=== PATIENT | female | born 1950 | race Hispanic/Latino ===

== ENCOUNTER 2017-10-18 11:17 | Emergency (ER) | payer OTHER, MEDICARE ==
[~2017-10-18 11:17] MED LIST: CELE-84 PO; FENO145T37 PO; LISI1TAB11 PO; PANT40TA25 PO; TERB250T51 PO
[2017-10-18 12:48] LABS: BASOPHILS % (AUTO) 0.8 % (0.0-5.0); EOSINOPHILS % (AUTO) 2.7 % (0.0-8.0); HEMATOCRIT 38.1 % (36-48); LYMPHOCYTES % (AUTO) 23.8 % (21.0-51.0); MEAN CORPUSCULAR HEMOGLOBIN 30.4 pg (27.0-33.0); MEAN CORPUSCULAR VOLUME 89.5 fL (79-99); MONOCYTES % (AUTO) 6.5 % (3.0-13.0); NEUTROPHILS % (AUTO) 66.2 % (40.0-77.0); PLATELET COUNT (AUTO) 189 K/uL (130-400); RED BLOOD CELL COUNT(AUTO) 4.26 MIL/uL (4.00-5.50); WHITE BLOOD COUNT (AUTO) 7.4 K/uL (4.8-10.8)
[2017-10-18 12:54] LABS: CREATININE 0.6 mg/dL (0.5-1.5); POTASSIUM 3.6 mmol/L (3.5-5.1)
[2017-10-18 12:59] LABS: ALBUMIN 3.3 g/dL (3.5-5.0); BILIRUBIN,TOTAL 0.3 mg/dL (0.2-1.0); TOTAL PROTEIN, SERUM 6.9 g/dL (6.0-8.3)
[2017-10-18] MEDS ORDERED: BENZONATATE 100 MG CAPSULE PO ONE (13:12)
[2017-10-18] MEDS ORDERED: OSELTAMIVIR PHOSPHATE 75 MG CAP ONE (13:13)
[2017-10-18 13:27] LABS: B-TYPE NATRIURETIC PEPTIDE 15 pg/mL (0-100)
== END 2017-10-18 14:49 | disposition home or self-care (01) ==
LOC: EDH 11:17
DX: J11.1 Influenza due to unidentified influenza virus with other respiratory manifestations (principal); I10 Essential (primary) hypertension; E78.5 Hyperlipidemia, unspecified; Z98.890 Other specified postprocedural states; Z88.8 Allergy status to other drugs, medicaments and biological substances
CPT/HCPCS: 36415; 71046; 80053; 83880; 84484; 85025; 87804; 87880; 93005

== ENCOUNTER 2017-11-19 21:53 | Emergency (ER) | payer OTHER, MEDICARE ==
[2017-11-19 22:23] LABS: APPEARANCE,URINE Clear (CLEAR); BILIRUBIN,URINE Negative (NEGATIVE); COLOR,URINE Dark Yellow (YELLOW); GLUCOSE, URINE (UA) Negative (NEGATIVE); KETONES,URINE Trace mg/dL (NEGATIVE); LEUKOCYTE ESTERASE ,URINE Moderate (NEGATIVE); NITRATE,URINE Negative (NEGATIVE); OCCULT BLOOD,URINE Negative (NEGATIVE); PH,URINE 5.5 (5.0-8.0); PROTEIN,URINE Negative (NEGATIVE)
[2017-11-19 22:34] LABS: BASOPHILS % (AUTO) 0.8 % (0.0-5.0); HEMATOCRIT 34.8 % (36-48); LYMPHOCYTES % (AUTO) 31.7 % (21.0-51.0); MEAN CORPUSCULAR HEMOGLOBIN 30.4 pg (27.0-33.0); MEAN CORPUSCULAR HGB CONC 33.9 g/dL (32.0-36.0); MEAN CORPUSCULAR VOLUME 89.7 fL (79-99); MONOCYTES % (AUTO) 7.2 % (3.0-13.0); NEUTROPHILS % (AUTO) 56.3 % (40.0-77.0); PLATELET COUNT (AUTO) 195 K/uL (130-400); RED BLOOD CELL COUNT(AUTO) 3.88 MIL/uL (4.00-5.50); RED CELL DISTRIBUTION WIDTH 14.3 % (11.0-15.5); WHITE BLOOD COUNT (AUTO) 7.4 K/uL (4.8-10.8)
[2017-11-19 22:36] LABS: BACTERIA,URINE Few /HPF (None Seen); MUCUS,URINE Moderate LPF (None Seen)
[2017-11-19 22:52] LABS: CREATININE 0.9 mg/dL (0.5-1.5); POTASSIUM 3.7 mmol/L (3.5-5.1)
[2017-11-19 22:57] LABS: ALBUMIN 3.3 g/dL (3.5-5.0); BILIRUBIN,TOTAL 0.2 mg/dL (0.2-1.0); TOTAL PROTEIN, SERUM 6.7 g/dL (6.0-8.3)
[2017-11-20] MEDS ORDERED: ONDANSETRON HCL MDV 20ML 2 MG/ML VIAL ONE (00:42)
[2017-11-20] MEDS ORDERED: SODIUM CHLORIDE 0.9% 1000ML 1,000 ML IV ONE (00:42)
== END 2017-11-20 02:48 | disposition home or self-care (01) ==
LOC: EDH 21:53
DX: K92.2 Gastrointestinal hemorrhage, unspecified (principal); R10.84 Generalized abdominal pain; E78.5 Hyperlipidemia, unspecified; I10 Essential (primary) hypertension; M19.90 Unspecified osteoarthritis, unspecified site; Z88.7 Allergy status to serum and vaccine; Z90.710 Acquired absence of both cervix and uterus; Z90.49 Acquired absence of other specified parts of digestive tract
CPT/HCPCS: 36415; 74176; 80053; 81001; 82150; 83690; 85025; 93005; 99285; J7030

== ENCOUNTER → 2018-07-05 | Outpatient (CLI) | payer MEDICARE, OTHER ==
[~2018-07-05] MED LIST changes: +IOHEXOL 350 MG/ML 100ML INFUS..BTL IV ONE
== END | disposition home or self-care (01) ==
LOC: OIH 08:32
PROVIDERS: ATTEND Internal Medicine Gastroenterology
DX: R10.31 Right lower quadrant pain (principal); Z90.49 Acquired absence of other specified parts of digestive tract
CPT/HCPCS: 74178; Q9967

== ENCOUNTER → 2020-02-06 | Outpatient (CLI) | payer OTHER ==
[~2020-02-06] MED LIST changes: +ALLO100T PO; +ASPI-1443 PO; +FENO145T26 PO; -FENO145T37 PO; -IOHEXOL 350 MG/ML 100ML INFUS..BTL IV ONE; +KRILL OIL PO; -LISI1TAB11 PO; +LISI1TAB51 PO; +LISI30TA4 PO; +LORA10CA PO; +METO-408 PO; -PANT40TA25 PO; +PANT40TA54 PO; +SOLI5 PO
== END | disposition home or self-care (01) ==
LOC: SHCH 12:28
PROVIDERS: ATTEND Internal Medicine Cardiovascular Disease
DX: I51.7 Cardiomegaly (principal); I87.2 Venous insufficiency (chronic) (peripheral); I20.9 Angina pectoris, unspecified
CPT/HCPCS: 93306; 93356; 93970

== ENCOUNTER → 2020-02-10 | Outpatient (CLI) | payer OTHER ==
[~2020-02-10] MED LIST changes: +PANT40TA25 PO; -PANT40TA54 PO; +REGADENOSON 0.4 MG/5 ML PF SYG IVP SCH
== END | disposition home or self-care (01) ==
LOC: SHCH 07:49
PROVIDERS: ATTEND Internal Medicine Cardiovascular Disease
DX: I20.9 Angina pectoris, unspecified (principal)
CPT/HCPCS: 78452; 93017; 96374; A9500 ×2; J2785

== ENCOUNTER 2020-02-22 06:45 | Day surgery (SDC) | payer OTHER ==
[2020-02-20 09:37] LABS: BASOPHILS % (AUTO) 0.5 % (0.0-5.0); EOSINOPHILS % (AUTO) 3.5 % (0.0-8.0); HEMATOCRIT 38.4 % (36-48); LYMPHOCYTES % (AUTO) 32.3 % (21.0-51.0); MEAN CORPUSCULAR HEMOGLOBIN 30.3 pg (27.0-33.0); MEAN CORPUSCULAR HGB CONC 32.8 g/dL (32.0-36.0); MEAN CORPUSCULAR VOLUME 92.3 fL (79-99); MONOCYTES % (AUTO) 7.5 % (3.0-13.0); NEUTROPHILS % (AUTO) 55.9 % (40.0-77.0); PLATELET COUNT (AUTO) 214 K/uL (130-400); RED BLOOD CELL COUNT(AUTO) 4.16 MIL/uL (4.00-5.50); RED CELL DISTRIBUTION WIDTH 13.5 % (11.0-15.5); WHITE BLOOD COUNT (AUTO) 5.8 K/uL (4.8-10.8)
[2020-02-20 09:52] LABS: CREATININE 0.7 mg/dL (0.5-1.5); POTASSIUM 4.5 mmol/L (3.5-5.1)
[2020-02-20 09:55] LABS: INR 0.97 (0.85-1.15); PARTIAL THROMBOPLASTIN TIME 29.6 SEC (26.3-35.5); PROTHROMBIN TIME 10.5 SEC (9.6-11.6)
[2020-02-20 10:14] LABS: APPEARANCE,URINE Clear (CLEAR); BILIRUBIN,URINE Negative (NEGATIVE); COLOR,URINE Yellow (YELLOW); GLUCOSE, URINE (UA) Negative (NEGATIVE); KETONES,URINE Negative (NEGATIVE); LEUKOCYTE ESTERASE ,URINE Negative (NEGATIVE); NITRATE,URINE Negative (NEGATIVE); OCCULT BLOOD,URINE Negative (NEGATIVE); PH,URINE 6.5 (5.0-8.0); PROTEIN,URINE Negative (NEGATIVE); UROBILINOGEN,URINE 0.2 mg/dL (0.2-1.0)
[2020-02-21 11:05] VITALS: BP 191/83
--- NOTE | 2020-02-21 11:30 | NUR ---
REPORT RECEIVED CALL BACK FROM TEMI PETERSON FOR DR ALANIS. WILL PROCEED WITH PROCEDURE AND EVAL PT IN AM IN REFERENCE TO CREAT AND COUGH. Addendum: 02/21/20 at 1139 by CHRISTIAN PIERRE RN RN WRONG PATIENT
[2020-02-22] VITALS (8 sets, daily range): BP systolic 115–159; BP diastolic 60–82
[~2020-02-22] VITALS: Ht 149.9 cm; Wt 77.9 kg
[~2020-02-22 06:45] MED LIST changes: -CELE-84 PO; -FENO145T26 PO; -LISI1TAB51 PO; -PANT40TA25 PO; -REGADENOSON 0.4 MG/5 ML PF SYG IVP SCH; -TERB250T51 PO
--- NOTE | 2020-02-22 07:30 | NUR ---
PT PRE-OP PREP COMPLETED. PENDING [employer] STAFF TO TAKE TO PROCEDURE
[2020-02-22] MEDS ORDERED: SODIUM CHLORIDE 0.9% 1000ML 1,000 ML IV ONE (08:15)
[2020-02-22] MEDS ORDERED: BIVALIRUDIN 250 MG/VIAL IV ONE (09:44)
[2020-02-22] MEDS ORDERED: IOHEXOL 350 MG/ML 100ML INFUS..BTL IV ONE (09:44)
[2020-02-22] MEDS ORDERED: LIDOCAINE HCL 2% 20ML ONE (09:44)
[2020-02-22] MEDS ORDERED: IOHEXOL-350 50ML VIAL IV ONE (09:44)
[2020-02-22] MEDS ORDERED: NITROGLYCERIN 2 MG/VIAL VIAL IV ONE (09:45)
[2020-02-22] MEDS ORDERED: SODIUM CHLORIDE 0.9% 1000ML 1,000 ML IV SCH (10:18)
[2020-02-22] MEDS ORDERED: METOPROLOL TARTRATE 1 MG/ML 5ML VIAL IV PRN (10:30)
[2020-02-22] MEDS ORDERED: HYDRALAZINE HCL 20 MG/ML VIAL IV PRN (10:30)
[2020-02-22] MEDS ORDERED: GLUCAGON 1MG KIT 1 MG ML IM PRN (10:30)
[2020-02-22] MEDS ORDERED: NITROGLYCERIN 0.4 MG SL TAB SL PRN (10:30)
[2020-02-22] MEDS ORDERED: DEXTROSE 50%-WATER 50 ML DISP.SYRIN IV PRN (10:30)
--- NOTE | 2020-02-22 14:23 | NUR ---
PT HAS REMAINED COMPLICATION FREE. MEETS DISCHARGE CRITERIA. PENDING DISCHARGE HOME AT 1500. VS STABLE AND RT GROIN HAS NO HEMATOMA OR BLEEDING. PULSES TO RT FOOT VIA DOPPLER PRE-POST PROCEDURE. DAUGHTER CANDICE AT BEDSIDE . I GAVE HER AND PT PRINTED AND VERBAL DISCHARGE INSTRUCTIONS . VERBALIZE UNDERSTANDING.
--- NOTE | 2020-02-22 15:00 | NUR ---
DISCHARGED HOME WITH DAUGHTER. NO ACUTE DISTRESS. NO HEMATOMA OR BLEEDING TO RT GROIN . TO CAR VIA WHEELCHAIR
== END 2020-02-22 15:00 | disposition home or self-care (01) ==
LOC: DAH 06:45
PROVIDERS: ATTEND Internal Medicine Cardiovascular Disease
DX: I25.119 Atherosclerotic heart disease of native coronary artery with unspecified angina pectoris (principal); I11.0 Hypertensive heart disease with heart failure; I50.30 Unspecified diastolic (congestive) heart failure; M10.9 Gout, unspecified; Z90.49 Acquired absence of other specified parts of digestive tract; Z72.89 Other problems related to lifestyle; Z79.899 Other long term (current) drug therapy; Z83.3 Family history of diabetes mellitus; Z82.49 Family history of ischemic heart disease and other diseases of the circulatory system; Z98.890 Other specified postprocedural states
CPT/HCPCS: 36415; 71045; 80048; 81003; 85025; 85610; 85730; 93005; 93458; A4215; A4216; A4221; A4222; A4223 ×3; A4606; A4663; C1760; C1894 ×2; J1644; J3490 ×2; J7030; Q9965; Q9967 ×2; J0583

== ENCOUNTER → 2020-05-28 | Outpatient (CLI) | payer OTHER | END | disposition home or self-care (01) | LOC: OIH 13:30 | PROVIDERS: ATTEND Internal Medicine | DX: R05 Cough (principal); I70.0 Atherosclerosis of aorta; M47.814 Spondylosis without myelopathy or radiculopathy, thoracic region | CPT/HCPCS: 71046 ==

== ENCOUNTER → 2020-06-20 | Outpatient (CLI) | payer OTHER | END | disposition home or self-care (01) | LOC: OIH 13:02 | PROVIDERS: ATTEND Internal Medicine | DX: M25.562 Pain in left knee (principal) | CPT/HCPCS: 73562 ==

== ENCOUNTER → 2020-07-16 | Outpatient (CLI) | payer OTHER | END | disposition home or self-care (01) | LOC: SHCH 09:19 | PROVIDERS: ATTEND Internal Medicine Cardiovascular Disease | DX: I87.2 Venous insufficiency (chronic) (peripheral) (principal); Z09 Encounter for follow-up examination after completed treatment for conditions other than malignant neoplasm; Z98.890 Other specified postprocedural states | CPT/HCPCS: 93971 ==

== ENCOUNTER → 2020-10-11 | Outpatient (CLI) | payer OTHER | END | disposition home or self-care (01) | LOC: RAH 13:53 | PROVIDERS: ATTEND Orthopaedic Surgery | DX: S83.242A Other tear of medial meniscus, current injury, left knee, initial encounter (principal); M25.462 Effusion, left knee; X58.XXXA Exposure to other specified factors, initial encounter; Y93.89 Activity, other specified; Y92.89 Other specified places as the place of occurrence of the external cause; Y99.8 Other external cause status | CPT/HCPCS: 73721 ==

== ENCOUNTER 2020-11-14 06:00 | Day surgery (SDC) | payer OTHER ==
[2020-11-08 10:45] LABS: BASOPHILS % (AUTO) 0.5 % (0.0-5.0); EOSINOPHILS % (AUTO) 3.9 % (0.0-8.0); HEMATOCRIT 38.6 % (36-48); LYMPHOCYTES % (AUTO) 36.2 % (21.0-51.0); MEAN CORPUSCULAR HEMOGLOBIN 29.6 pg (27.0-33.0); MEAN CORPUSCULAR HGB CONC 32.1 g/dL (32.0-36.0); MEAN CORPUSCULAR VOLUME 92.1 fL (79-99); MONOCYTES % (AUTO) 7.5 % (3.0-13.0); NEUTROPHILS % (AUTO) 51.4 % (40.0-77.0); PLATELET COUNT (AUTO) 199 K/uL (130-400); RED BLOOD CELL COUNT(AUTO) 4.19 MIL/uL (4.00-5.50); RED CELL DISTRIBUTION WIDTH 13.8 % (11.0-15.5); WHITE BLOOD COUNT (AUTO) 6.1 K/uL (4.8-10.8)
[2020-11-08 10:56] LABS: CREATININE 0.7 mg/dL (0.5-1.5); POTASSIUM 3.8 mmol/L (3.5-5.1)
[2020-11-13 12:18] VITALS: BP 199/94
[~2020-11-14] VITALS: Ht 152.4 cm; Wt 80.6 kg
[2020-11-14] VITALS (15 sets, daily range): BP systolic 154–193; BP diastolic 71–99
[~2020-11-14 06:00] MED LIST changes: -ALLO100T PO; -ASPI-1443 PO; -KRILL OIL PO; -LISI30TA4 PO; -LORA10CA PO; +LOSA50TA64 PO; +METO-391 PO; -METO-408 PO
[2020-11-14] MEDS ORDERED: CEFAZOLIN SODIUM 1 GM VIAL ONE (06:10)
[2020-11-14] MEDS ORDERED: LACTATED RINGERS 1000ML 1,000 ML IV ONE (06:10)
[2020-11-14] MEDS ORDERED: ALLO100T PO (06:42)
[2020-11-14] MEDS ORDERED: LIDOCAINE PF 2% 5ML ABBOJECT ONE ×2 (07:43→07:45)
[2020-11-14] MEDS ORDERED: SUCCINYLCHOLINE CHLORIDE 20 MG/ML 10 ML VIAL ONE ×2 (07:43→07:45)
[2020-11-14] MEDS ORDERED: ONDANSETRON HCL 4 MG/2 ML VIAL ONE (07:44)
[2020-11-14] MEDS ORDERED: FENTANYL CITRATE PF 50 MCG/1 ML 2ML VIAL ONE (07:44)
[2020-11-14] MEDS ORDERED: MIDAZOLAM HCL 1 MG/ML 2ML VIAL ONE (07:44)
[2020-11-14] MEDS ORDERED: NEOSTIGMINE 5MG/5ML SYR IV ONE (07:44)
[2020-11-14] MEDS ORDERED: PROPOFOL 10 MG/ML 20ML VIAL IV ONE (07:44)
[2020-11-14] MEDS ORDERED: GLYCOPYRROLATE 1 MG/5 ML SYRINGE ONE (07:44)
[2020-11-14] MEDS ORDERED: ROCURONIUM 10MG/1ML SYR 10 MG/ML ML ONE (07:44)
[2020-11-14] MEDS ORDERED: CEFAZOLIN SODIUM 1 GM VIAL IVP ONE (08:00)
[2020-11-14] MEDS ORDERED: LABETALOL HCL 5 MG/ML 20ML VIAL IV ONE (08:59)
[2020-11-14] MEDS ORDERED: IBUP-2070 PO (09:02)
[2020-11-14] MEDS ORDERED: ACET1TAB25 PO (09:02)
[2020-11-14] MEDS ORDERED: CEPH500B PO (09:02)
== END 2020-11-14 10:12 | disposition home or self-care (01) ==
LOC: DAH 06:00
PROVIDERS: ATTEND Orthopaedic Surgery
DX: S83.232A Complex tear of medial meniscus, current injury, left knee, initial encounter (principal); Z20.822 Contact with and (suspected) exposure to COVID-19; M22.42 Chondromalacia patellae, left knee; M23.301 Other meniscus derangements, unspecified lateral meniscus, left knee; I10 Essential (primary) hypertension; I25.10 Atherosclerotic heart disease of native coronary artery without angina pectoris; M10.9 Gout, unspecified; Z98.890 Other specified postprocedural states; Z90.49 Acquired absence of other specified parts of digestive tract; Z90.710 Acquired absence of both cervix and uterus; Z82.49 Family history of ischemic heart disease and other diseases of the circulatory system; Z82.3 Family history of stroke; Z83.3 Family history of diabetes mellitus; Z80.9 Family history of malignant neoplasm, unspecified; W19.XXXA Unspecified fall, initial encounter; Y93.89 Activity, other specified; Y92.89 Other specified places as the place of occurrence of the external cause; Y99.8 Other external cause status
CPT/HCPCS: 29881; 36415; 80048; 85025; A4215; A4216; A4221; A4223 ×2; A4606; A4649 ×2; A4663; A4930; A5120; A6223; C9803; J0330 ×2; J0690; J2001 ×2; J2250; J2405; J2704; J2710; J3010; J3490 ×2; J7120; U0003

== ENCOUNTER → 2021-08-20 | Outpatient (CLI) | payer OTHER ==
[~2021-08-20] MED LIST changes: +ACET1TAB25 PO; +ALLO100T PO; +CEPH500B PO; +IBUP-2070 PO; +IOHEXOL-350 75 ML VIAL IV ONE
== END | disposition home or self-care (01) ==
LOC: RAH 08:09
PROVIDERS: ATTEND Internal Medicine Gastroenterology
DX: N28.1 Cyst of kidney, acquired (principal); K57.90 Diverticulosis of intestine, part unspecified, without perforation or abscess without bleeding; K44.9 Diaphragmatic hernia without obstruction or gangrene; N32.89 Other specified disorders of bladder; Z90.49 Acquired absence of other specified parts of digestive tract
CPT/HCPCS: 74178; Q9967

== ENCOUNTER → 2024-03-09 | Outpatient (CLI) | payer OTHER ==
[~2024-03-09] MED LIST changes: +ACET-2079 PO; -ACET1TAB25 PO; -IOHEXOL-350 75 ML VIAL IV ONE
== END | disposition home or self-care (01) ==
LOC: SHCH 08:44
PROVIDERS: ATTEND Internal Medicine Cardiovascular Disease
DX: I82.413 Acute embolism and thrombosis of femoral vein, bilateral (principal); I87.2 Venous insufficiency (chronic) (peripheral); I70.202 Unspecified atherosclerosis of native arteries of extremities, left leg
CPT/HCPCS: 93925; 93970

== ENCOUNTER → 2024-03-11 | Outpatient (CLI) | payer OTHER ==
[2024-03-11] MEDS: REGADENOSON 0.4 MG/5 ML PF SYG IVP ONE (12:19)
== END | disposition home or self-care (01) ==
LOC: SHCH 07:52
PROVIDERS: ATTEND Internal Medicine Cardiovascular Disease
DX: I20.0 Unstable angina (principal)
CPT/HCPCS: 78452; 93017; J2785; A9500 ×2; 96374

== ENCOUNTER 2024-05-28 11:11 | Emergency (ER) | payer MEDICARE, OTHER ==
[~2024-05-28] VITALS: Ht 149.9 cm; Wt 70.8 kg
[2024-05-28 11:30] VITALS: BP 161/85; PULSE 92; RESP 16; TEMP 98.2; O2SAT 98
[2024-05-28] MEDS: dexaMETHasone SOD PHOSPHATE 4 MG/ML 1ML VIAL IM ONE (11:34)
[2024-05-28] MEDS: acetaMINOPHEN WITH coDEINE 1 TAB TAB PO ONE (11:34)
[2024-05-28] MEDS ORDERED: ACET-2079 PO (11:58)
[2024-05-28] MEDS ORDERED: METH4TAB3 PO (11:58)
== END 2024-05-28 12:27 | disposition home or self-care (01) ==
LOC: EDH 11:11
DX: M19.012 Primary osteoarthritis, left shoulder (principal); M19.022 Primary osteoarthritis, left elbow; E11.9 Type 2 diabetes mellitus without complications; E78.00 Pure hypercholesterolemia, unspecified; I10 Essential (primary) hypertension; Z79.899 Other long term (current) drug therapy; Z90.49 Acquired absence of other specified parts of digestive tract; Z90.710 Acquired absence of both cervix and uterus; Z98.890 Other specified postprocedural states
CPT/HCPCS: 99284; 73080; 73030; 96372; J1100